=== PATIENT | female | born 1990 | race Caucasian/White ===

== ENCOUNTER → 2019-03-27 | Outpatient (CLI) | payer OTHER | LOC: HYPER 03-20 15:11 | DX: E11.621 Type 2 diabetes mellitus with foot ulcer (principal); L97.523 Non-pressure chronic ulcer of other part of left foot with necrosis of muscle; L84 Corns and callosities; M20.41 Other hammer toe(s) (acquired), right foot; F41.9 Anxiety disorder, unspecified; F32.9 Major depressive disorder, single episode, unspecified; F17.200 Nicotine dependence, unspecified, uncomplicated ==

== ENCOUNTER → 2019-04-04 | Outpatient (CLI) | payer OTHER | LOC: HYPER 06:32 | DX: E11.621 Type 2 diabetes mellitus with foot ulcer (principal); L97.522 Non-pressure chronic ulcer of other part of left foot with fat layer exposed; M20.41 Other hammer toe(s) (acquired), right foot; F17.200 Nicotine dependence, unspecified, uncomplicated; F41.9 Anxiety disorder, unspecified; F32.9 Major depressive disorder, single episode, unspecified; Z79.84 Long term (current) use of oral hypoglycemic drugs ==

== ENCOUNTER → 2019-04-11 | Outpatient (CLI) | payer OTHER | LOC: HYPER 06:55 | DX: E11.621 Type 2 diabetes mellitus with foot ulcer (principal); L97.522 Non-pressure chronic ulcer of other part of left foot with fat layer exposed; M20.41 Other hammer toe(s) (acquired), right foot; F41.9 Anxiety disorder, unspecified; F32.9 Major depressive disorder, single episode, unspecified; F17.200 Nicotine dependence, unspecified, uncomplicated; Z79.84 Long term (current) use of oral hypoglycemic drugs ==

== ENCOUNTER → 2019-04-15 | Outpatient (CLI) | payer OTHER | LOC: HYPER 06:29 | DX: E11.621 Type 2 diabetes mellitus with foot ulcer (principal); L97.522 Non-pressure chronic ulcer of other part of left foot with fat layer exposed; L84 Corns and callosities; M20.41 Other hammer toe(s) (acquired), right foot; F41.9 Anxiety disorder, unspecified; F32.9 Major depressive disorder, single episode, unspecified; F17.200 Nicotine dependence, unspecified, uncomplicated; Z79.84 Long term (current) use of oral hypoglycemic drugs ==

== ENCOUNTER → 2019-04-18 | Outpatient (CLI) | payer OTHER | LOC: HYPER 04-17 06:57 | DX: E11.621 Type 2 diabetes mellitus with foot ulcer (principal); L97.522 Non-pressure chronic ulcer of other part of left foot with fat layer exposed; L84 Corns and callosities; M20.41 Other hammer toe(s) (acquired), right foot; F17.200 Nicotine dependence, unspecified, uncomplicated; F41.9 Anxiety disorder, unspecified; F32.9 Major depressive disorder, single episode, unspecified; Z79.84 Long term (current) use of oral hypoglycemic drugs ==

== ENCOUNTER → 2019-04-24 | Outpatient (CLI) | payer OTHER | LOC: HYPER 06:43 | DX: E11.621 Type 2 diabetes mellitus with foot ulcer (principal); L97.522 Non-pressure chronic ulcer of other part of left foot with fat layer exposed; M20.41 Other hammer toe(s) (acquired), right foot; L84 Corns and callosities; F41.9 Anxiety disorder, unspecified; F32.9 Major depressive disorder, single episode, unspecified; F17.200 Nicotine dependence, unspecified, uncomplicated; Z79.84 Long term (current) use of oral hypoglycemic drugs ==

== ENCOUNTER → 2019-04-29 | Outpatient (CLI) | payer OTHER | LOC: HYPER 10:35 | DX: E11.621 Type 2 diabetes mellitus with foot ulcer (principal); L97.522 Non-pressure chronic ulcer of other part of left foot with fat layer exposed; L84 Corns and callosities; M20.41 Other hammer toe(s) (acquired), right foot; F41.9 Anxiety disorder, unspecified; F17.200 Nicotine dependence, unspecified, uncomplicated; F32.9 Major depressive disorder, single episode, unspecified; Z79.84 Long term (current) use of oral hypoglycemic drugs ==

== ENCOUNTER → 2019-05-08 | Outpatient (CLI) | payer OTHER | LOC: HYPER 07:03 | DX: E11.621 Type 2 diabetes mellitus with foot ulcer (principal); L97.522 Non-pressure chronic ulcer of other part of left foot with fat layer exposed; L84 Corns and callosities; M20.41 Other hammer toe(s) (acquired), right foot; F41.9 Anxiety disorder, unspecified; F32.9 Major depressive disorder, single episode, unspecified; F17.200 Nicotine dependence, unspecified, uncomplicated; Z79.84 Long term (current) use of oral hypoglycemic drugs ==

== ENCOUNTER → 2019-05-15 | Outpatient (CLI) | payer OTHER | LOC: HYPER 06:41 | DX: E11.621 Type 2 diabetes mellitus with foot ulcer (principal); L97.522 Non-pressure chronic ulcer of other part of left foot with fat layer exposed; L84 Corns and callosities; M20.41 Other hammer toe(s) (acquired), right foot; F17.200 Nicotine dependence, unspecified, uncomplicated; F41.9 Anxiety disorder, unspecified; F32.9 Major depressive disorder, single episode, unspecified; Z79.84 Long term (current) use of oral hypoglycemic drugs ==

== ENCOUNTER → 2019-05-22 | Outpatient (CLI) | payer OTHER ==
[~2019-05-22] MED LIST: COZAAR 25 MG TA25 M2 PO; FLEXERIL PO; GLIPIZIDE 10 MG10 MG PO; LIPITOR 20 MG T20 M1 PO; VICTOZA 3-0.6 MG/0.1 SUBQ
== END ==
LOC: HYPER 06:57
DX: E11.621 Type 2 diabetes mellitus with foot ulcer (principal); L97.522 Non-pressure chronic ulcer of other part of left foot with fat layer exposed; L84 Corns and callosities; M20.41 Other hammer toe(s) (acquired), right foot; F17.200 Nicotine dependence, unspecified, uncomplicated; F41.9 Anxiety disorder, unspecified; F32.9 Major depressive disorder, single episode, unspecified; Z79.84 Long term (current) use of oral hypoglycemic drugs

== ENCOUNTER 2019-05-29 09:53 | Day surgery (SDC) | payer OTHER ==
[~2019-05-29] VITALS: Ht 182.9 cm; Wt 102.2 kg
[2019-05-29 10:43] LABS: HEMATOCRIT 48.9 % (37.0-47.0); HEMOGLOBIN 16.6 gm/dL (12.0-15.0); MCH 28.7 pg (26.0-34.0); MCV 84.5 fL (80.0-100.0); RBC 5.79 mil/uL (4.20-5.00); RDW 12.7 % (10.5-14.5); WBC 18.7 thou/uL (4.0-11.0)
[2019-05-29 11:00] VITALS: BP 157/92
--- NOTE | 2019-05-31 19:06 | PATH ---
[facility] [address] [place] [address] PATHOLOGY RPT PROCEDURE Name: AILYN CAMACHO Room #: DEP [facility] M.R.#: [id number] ������������������ Admission: 05/29/19 ������������������ Date of : 86 Discharge: 05/29/19 Report #: [id number] Path Case #: [id number] LCA Accession Number: [id number] . 01 Material submitted: . toe - LEFT GREAT TOE. Modifiers: left . 01 Clinical history: . Osteomyelitis left hallux . 02 Diagnosis: Toe, left great toe, amputation: - Marked acute osteomyelitis along with bone destruction involving underneath acutely inflamed subcutaneous tissue. - Overlying skin and subcutaneous tissue showing ulceration as well as abscess formation. - Bone margin viable and free of acute osteomyelitis. (IUV:riley; 05/31/2019) QMS/05/31/2019 . 02 Electronically signed: . Priya Rodrigues MD, Pathologist NPI- [id number] . 01 Gross description: . The specimen is received in formalin, labeled "Ailyn Camacho, left great toe". Received is an amputated digit measuring 6.8 x 3.1 x 2.8 cm in greatest dimensions. The bone margin is smooth and concave in appearance, consistent with disarticulation. The bone and soft tissue margins are inked black. The nail is present display in a pale lloyd and slightly thickened appearance. On the plantar/medial aspect of the specimen, there is a poorly circumscribed, irregular in contour, partially ulcerated and light lloyd to cruz-brown lesion measuring 2.3 x 1.5 cm, which is 0.8 cm from the closest skin margin. A full-thickness longitudinal cross-section is submitted proximal to distal aspects in cassettes A1 through A3, following decalcification. (CAA; 05/30/2019) QAC/QAC . 02 Pathologist provided ICD-10: M86.172, L97.529 . 02 CPT . 082254, 984860 Specimen Comment: A courtesy copy of this report has been sent to Specimen Comment: [phone], . Specimen Comment: Report sent to / [place] [address] PATHOLOGY RPT PROCEDURE Name: AILYN CAMACHO Room #: DEP [facility].#: [id number] ������������������ Admission: 05/29/19 ������������������ Date of : 88 Discharge: 05/29/19 Report #: [id number] Path Case #: [id number] Performed at: 01 [facility] Art Wang [address], [place], [place] [id number] MD Phillip Salas MD Phone: [phone] Performed at: [address] [id number] MD Priya Rodrigues MD Phone: [phone]
== END 2019-05-29 12:35 | disposition home or self-care (01) ==
LOC: TBA 09:53 → OR 09:53 → TBA 10:11 → OR 11:14
PROVIDERS: Podiatrist Foot & Ankle Surgery
DX: E11.621 Type 2 diabetes mellitus with foot ulcer (principal); M86.172 Other acute osteomyelitis, left ankle and foot; L97.529 Non-pressure chronic ulcer of other part of left foot with unspecified severity; I10 Essential (primary) hypertension; E78.00 Pure hypercholesterolemia, unspecified; F32.9 Major depressive disorder, single episode, unspecified; F41.9 Anxiety disorder, unspecified; F17.210 Nicotine dependence, cigarettes, uncomplicated; Z98.890 Other specified postprocedural states; Z88.8 Allergy status to other drugs, medicaments and biological substances; Z79.899 Other long term (current) drug therapy; Z91.040 Latex allergy status
CPT/HCPCS: 50010; 50101; 50386; 50951; 56525; 56527; 56805; 57091; 57178

== ENCOUNTER 2019-06-03 15:16 | Inpatient (IN) | payer OTHER ==
[~2019-06-03] VITALS: Ht 182.9 cm; Wt 101.4 kg
--- NOTE | ~2019-06-03 | HC ---
[facility] [place] [address] CONSULTATION Name: CASSY OSPINA Room #: 449-I ADM IN M.R.#: [id number] Admission: 06/03/19 ������������������ Attend Phys: Tyler Lindsay MD Discharge: ������������������ Date of : 88 Report #: [id number] THIS REPORT FOR: //name// CC: Rl Lindsay DATE OF SERVICE: 06/04/2019 INFECTIOUS DISEASE CONSULTATION REASON FOR CONSULTATION: I was asked to evaluate concerning surgical site infection, left foot. HISTORY OF PRESENT ILLNESS: The patient is a 29-year-old diabetic with a nonhealing wound to her left first toe. On 05/29/2019, Dr. Harrington performed a left first toe amputation. There were no intraoperative complications. Postoperatively, developed increased erythema and drainage. She has had pain with this. She does have underlying peripheral neuropathy. Her blood glucose control has been poor. She was hospitalized for further wound care, diabetic management and antibiotics. ALLERGIES: LATEX, AMOXICILLIN, PROPRANOLOL. The patient did tolerate cephalexin. MEDICATIONS: The patient was on cephalexin postoperatively, now on vancomycin and Levaquin. Other medications as noted on her MAR. PAST MEDICAL HISTORY: Diabetes, tonsillectomy, , left foot wound. She has had a wound to her right great toe, which has healed. FAMILY HISTORY: Noncontributory. SOCIAL HISTORY: Smoker of cigarettes. No significant alcohol intake, no HIV risks. REVIEW OF SYSTEMS: Ten-point review was negative other than what is described above. PHYSICAL EXAMINATION: VITAL SIGNS: Afebrile and hemodynamically stable. GENERAL: Alert and cooperative and pleasant. Mildly obese. SKIN: Without rash or lesion. Remainder will be discussed on her extremity examination. No palpable adenopathy. EYES: Without scleral icterus. MOUTH: Without mucositis. NECK: Supple, with no thyromegaly or mass. [facility] [address] [place] [address] CONSULTATION Name: CASSY OSPINA [facility].#: [id number] Admission: 06/03/19 ������������������ Attend Phys: Tyler Lindsay MD Discharge: ������������������ Date of : 88 Report #: [id number] LUNGS: Clear. HEART: Regular, without murmur, gallop or rub. ABDOMEN: Soft and nontender with no hepatosplenomegaly or mass. GENITAL RECTAL: Not performed. EXTREMITIES: The left foot had postoperative change from left great toe amputation. Incision was well approximated. There were surrounding erythema and some ecchymosis. There was minimal drainage. She had a bullous lesion over the dorsum of her midfoot from pressure. Sensation was diminished in the toes to fine touch. She had high arches. Pulses in the foot were diminished in the posterior tibial with normal dorsalis pedis. Strength was normal. Other toes were with good capillary refill and were warm. NEUROLOGIC: Cranial nerves intact. PSYCHIATRIC: Mood normal. LABORATORY STUDIES: Reviewed. Creatinine 0.6. Liver function tests normal. WBC 16.5, hemoglobin 15.9, platelets 327,000. Blood cultures are pending. Wound culture pending. Intraoperative cultures revealed group B Streptococcus from 05/29/2019. IMPRESSION: 1. A 29-year-old diabetic with osteomyelitis of her left first toe, status post amputation, now postoperative day #6 with left foot surgical site infection and associated cellulitis. MRI scan shows small fluid collection consistent with hematoma. Reactive changes to the metatarsal head. 2. PENICILLIN allergy. RECOMMENDATIONS: We will continue antibiotic coverage pending culture results from her incisional drainage. I have discussed with Surgical Service. We will give this another 24 hours and reassess before considering incision and drainage of the hematoma. ��������������������������������������������� ���������������������������������������� By: ��������������������������������������������� 1952 0223 Tone Colin MD /nt
[2019-06-03 15:14] VITALS: BP 134/85
[2019-06-03 17:52] LABS: HEMATOCRIT 47.2 % (37.0-47.0); HEMOGLOBIN 15.9 gm/dL (12.0-15.0); MCH 28.6 pg (26.0-34.0); MCHC 33.6 g/dL (28.0-37.0); MCV 85.2 fL (80.0-100.0); RBC 5.54 mil/uL (4.20-5.00); RDW 13.3 % (10.5-14.5); WBC 16.5 thou/uL (4.0-11.0)
[2019-06-03 17:57] LABS: CALCIUM 9.7 mg/dL (8.5-10.1); CREATININE 0.6 mg/dL (0.6-1.0); POTASSIUM 3.8 mmol/L (3.5-5.1)
[2019-06-03 18:03] LABS: ALBUMIN 3.4 g/dL (3.4-5.0); TOTAL BILIRUBIN 0.6 mg/dL (<0.1-1.0); TOTAL PROTEIN 7.1 g/dL (6.4-8.2)
[2019-06-03 18:10] LABS: CHOLESTEROL 150 mg/dL (<200); HDL CHOLESTEROL 32 mg/dL (>40); LDL CHOLESTEROL 91 mg/dL (<100); TC:HDL 4.7 Ratio (Not establshd); TRIGLYCERIDE 135 mg/dL (<150); VLDL 27 mg/dL (<40)
[2019-06-03 18:11] LABS: SERUM ASSESSMENT Clear
[2019-06-03 19:54] VITALS: BP 131/86
[2019-06-03 22:05] VITALS: BP 143/84
[2019-06-04 04:05] VITALS: BP 123/69
[2019-06-04 07:58] VITALS: BP 134/79
[2019-06-04 16:33] VITALS: BP 140/60
[2019-06-04 19:53] VITALS: BP 120/67
[2019-06-05] VITALS (9 sets, daily range): BP systolic 103–154; BP diastolic 59–91
[2019-06-05 04:06] LABS: GLYCOHEMOGLOBIN (HGB A1C) 8.8 % (4.8-5.6)
[2019-06-05 05:43] LABS: ABSOLUTE NEUTROPHILS 5.1 thou/uL (1.4-8.2); BASOPHILS 0.7 % (0.0-2.0); EOSINOPHILS 5.3 % (0.0-3.0); HEMATOCRIT 42.9 % (37.0-47.0); HEMOGLOBIN 14.4 gm/dL (12.0-15.0); LYMPHOCYTES 36.4 % (24.0-44.0); MCH 28.8 pg (26.0-34.0); MCHC 33.5 g/dL (28.0-37.0); MCV 85.8 fL (80.0-100.0); MONOCYTES 9.6 % (1.0-8.0); PLATELET COUNT 298 thou/uL (150-400); RDW 12.9 % (10.5-14.5); WBC 10.6 thou/uL (4.0-11.0)
--- NOTE | 2019-06-05 07:45 | HC ---
[facility] [place] [address] CONSULTATION Name: CASSY OSPINA Room #: 449-I ADM IN M.R.#: [id number] Admission: 06/03/19 ������������������ Attend Phys: Tyler Lindsay MD Discharge: ������������������ Date of : 88 Report #: [id number] THIS REPORT FOR: //name// CC: Rl Lindsay DATE OF SERVICE: 06/04/2019 HISTORY OF PRESENT ILLNESS: The patient is a 29-year-old uncontrolled diabetic with history of neuropathy and chronic ulceration to her left hallux. She has had this wound for over a year. She was under my care and then was referred most recently by Dr. Trejo and was getting skin grafts and total contact casting to offload. The patient had developed an infection that then probed directly to bone and on x-ray has had bony infectious changes. The patient underwent a left hallux amputation on 05/29/2019. The patient was then seen yesterday in my outpatient office for postoperative appointment with noted cellulitis at incision aspect. The patient has issue with elevated blood sugars at home and has not been taking adequate amount of insulin. The patient prior to admission was on Keflex antibiotic. The patient denies fever, chills, nausea, vomiting. The patient smokes about a half pack of cigarettes per day. The patient has been off work wearing a forefoot offloading surgical shoe at all times since prior to surgery. PHYSICAL EXAMINATION: EXTREMITIES: Right foot without any breaks in the skin. Left foot with incision to first metatarsal head well approximated at lateral aspect, but it medial aspect, there is some slight gapping with some localized serosanguineous drainage with surrounding edema and erythema, but not ascending. There are no areas of obvious abscess or fluctuance. There is some maceration at the medial aspect of the incision. There is no pus. No malodor. There is complete neuropathy to bilateral forefeet and decreased throughout the rest of the feet, bilateral. There is some mild tenderness at the area of the incision on the left. Due to palpable pulses bilateral, temperature warm with some slight increase at the area of the incision left. IMPRESSION: A 29-year-old uncontrolled diabetic with neuropathy and status post left hallux amputation now with incision dehiscense and cellulitis. The patient was admitted from my outpatient clinic yesterday 06/03/2019 for further workup with MRI, Infectious Disease consult, IV antibiotics, better glucose control, and tobacco cessation counseling. Also recommend SW consult and endocrinology consult. The patient with leukocytosis, currently. Afebrile. We will await MRI results for further recommendations. [address] [address] CONSULTATION Name: CASSY OSPINA Room #: 449-I ADM IN M.R.#: [id number] Admission: 06/03/19 ������������������ Attend Phys: Tyler Lindsay MD Discharge: ������������������ Date of : 88 Report #: [id number] Previous wound culture with group B strep. Her postop x-rays from left hallux amputation without any concerns for further bone infection or abscess. Recommend offloading with resting and elevation of the left foot with only bathroom privileges with forefoot surgical shoe to offload. Will closely follow. ��������������������������������������������� <ELECTRONICALLY SIGNED> ���������������������������������������� By: Gi Harrington DPM ��������������������������������������������� 06/05/19 0745 0805 0215 Gi Harrington DPM /nt
--- NOTE | 2019-06-05 16:17 | HC ---
[facility] [place] [address] CONSULTATION Name: CASSY OSPINA Room #: 449-I ADM IN M.R.#: [id number] Admission: 06/03/19 ������������������ Attend Phys: Tyler Lindsay MD Discharge: ������������������ Date of : 88 Report #: [id number] THIS REPORT FOR: //name// CC: Rl Lindsay DATE OF SERVICE: 06/04/2019 CHIEF COMPLAINT: Left foot infection. HISTORY OF PRESENT ILLNESS: This is a 29-year-old female patient with a history of diabetes mellitus with a chronic ulceration to her left great toe. She underwent a series of total contact cast procedures and some skin substitute procedures, developed progressive infection and osteomyelitis and had a great toe amputation. The amputation site was closed primarily but has become infected and she is admitted to the hospital for further evaluation and treatment. She has been started on intravenous antibiotic therapy. I have been asked to see with regard to ongoing wound care issues. ALLERGIES: To LATEX, AMOXICILLIN and PROPRANOLOL. PAST MEDICAL HISTORY: Positive for osteomyelitis of the left foot, type 2 diabetes mellitus, previous . SOCIAL HISTORY: The patient is a current daily smoker. She drinks occasionally, maybe 1 drink every 6-9 months. FAMILY HISTORY: Noncontributory. CURRENT MEDICATIONS: Include Flexeril, Victoza, Glucotrol, Cozaar and Lipitor. REVIEW OF SYSTEMS: CONSTITUTIONAL: The patient denies fever, chills or weight loss. NEUROLOGICAL: The patient denies focal weakness, numbness or tingling. EYES: The patient denies visual changes, redness, or drainage. ENT: The patient denies earache, nasal drainage or sore throat. CARDIOVASCULAR: The patient denies chest pain, palpitations or diaphoresis. PULMONARY: The patient denies cough or shortness of breath. GASTROINTESTINAL: The patient denies nausea, vomiting, diarrhea or abdominal pain. ORTHOPEDIC: The patient does note some pain, swelling, redness involving her left foot at the incision site area. Other systems in a 14-point review of systems are negative. PHYSICAL EXAMINATION: VITAL SIGNS: At this time include temperature 36.6, pulse 60, respiratory rate [facility] [address] [place] [address] CONSULTATION Name: CASSY OSPINA Room #: 449-I [facility] IN [facility].#: [id number] Admission: 06/03/19 ������������������ Attend Phys: Tyler Lindsay MD Discharge: ������������������ Date of : 88 Report #: [id number], blood pressure 140/60. GENERAL: This is a well-developed, well-nourished female patient who appears to be in minimal distress. HEENT: Head normocephalic. NECK: Supple. LUNGS: Clear. ABDOMEN: Soft, bowel sounds present. EXTREMITIES: Lower extremities demonstrate palpable distal pulses. She has an incision line from following a left great toe amputation. It is moderately erythematous, tender and warm with a slight amount of drainage, but no odor. NEUROLOGIC: The patient is alert and oriented and appropriate. LABORATORY STUDIES: So far include white blood cell count 16.5 with a hemoglobin of 15.9. Sodium 134, potassium 3.8, chloride 96, CO2 of 29, BUN 9, creatinine 0.6, glucose 250. Albumin is 3.4. CLINICAL IMPRESSION: 1. Surgical wound infection following amputation of the left great toe. 2. Diabetes mellitus with peripheral neuropathy. 3. History of a nonhealing ulcer, left great toe, with underlying osteomyelitis. 4. Diabetes mellitus type 2 with hyperglycemia. RECOMMENDATIONS: At this point in time, the patient has been started on broad-spectrum antibiotic therapy. She will be seen by Infectious Disease. We will check an MRI to look for underlying fluid collection or abscess. Xeroform gauze to the incision line for the present time. Additional decision making be forthcoming upon additional laboratory studies and MRI results. I appreciate being asked to see her in consultation. ��������������������������������������������� <ELECTRONICALLY SIGNED> ���������������������������������������� By: Cortez eDl Rio MD ��������������������������������������������� 06/05/19 1617 1826 0256 Cortez Del Rio MD /nt
[2019-06-06 03:44] VITALS: BP 122/67
--- NOTE | 2019-06-06 07:18 | O ---
[facility] [place] [address] OPERATIVE REPORT Name: CASSY OSPINA Room #: 449-I ADM IN M.R.#: [id number] Admission: 06/03/19 ������������������ Attend Phys: Tylre Lindsay MD Discharge: ������������������ Date of : 88 Report #: [id number] THIS REPORT FOR: //name// CC: Rl Lindsay DATE OF SERVICE: 06/05/2019 SURGEON: GI BAKER DPM PREOPERATIVE DIAGNOSIS: Left foot dehiscence of incision with cellulitis and abscess. POSTOPERATIVE DIAGNOSIS: Left foot dehiscence of incision with cellulitis and abscess. PROCEDURE: Incision and drainage with debridement of left foot abscess/incision dehiscense. ANESTHESIA: MAC with local block, left foot. PATHOLOGY: culture wound left foot. COMPLICATIONS: None. HEMOSTASIS: Left ankle tourniquet set at 250 mmHg. ESTIMATED BLOOD LOSS: 10 mL. DESCRIPTION OF OPERATION: The patient was brought to the operating room with light sedation and placed on the bed in a supine position under monitored anesthesia care. Then a 1:1 mixture of 0.5% Marcaine plain and 1% lidocaine plain was infiltrated into the left foot. A pneumatic ankle tourniquet was placed on the left ankle. The left foot was prepped and draped in the normal sterile fashion and then the pneumatic ankle tourniquet was inflated to 250 mmHg. Attention was directed to the left first metatarsal head aspect where a previous incision was present with dehiscence extending from the central to medial aspect with a wound present with nonviable tissue. An incision was made over the previous site in a semielliptical fashion removing all nonviable tissue to the skin. This tissue was sent for culture. The incision was deepened using sharp and blunt dissection. Care was taken to identify all neurovascular bundles and cauterize all the bleeders. The tissue here that was just distal to the first metatarsal head, all appeared nonviable and necrotic. In addition, there was a small pocket of fluid present heremeasuring about 1 cm. Dissection was carried down to the first metatarsal head, [facility] [address] [place] [address] OPERATIVE REPORT Name: CASSY OSPINA Room #: 449-I ADM IN .R.#: [id number] Admission: 06/03/19 ������������������ Attend Phys: Tyler Lindsay MD Discharge: ������������������ Date of : 88 Report #: [id number] which the bone appeared healthy and viable. The remaining tissues left appeared healthy. The use of Misonix debrider was used to remove all remaining nonviable tissue. The wound was irrigated with copious 1L saline. There was no remaining drainage or any pus proximal with deep compression or to the wound site. Skin closure was then obtained using a combination of 2-0 and 3-0 nylon in a simple interrupted fashion with retention sutures at the central aspect. . In addition, a TLC drain was placed at the central aspect of the incision with more loose retention sutures in place to allow drainage. The surgical site was dressed with Betadine-soaked Adaptic, 4 x 4, Claudio and an Taran bandage. The tourniquet was released and adequate capillary fill time was noted to all present digits on the left foot and the stump at first metatarsal head. The patient left the operating room with vital signs stable in satisfactory condition for further monitoring. The drain will be removed prior to discharge. She was given written and verbal instruction and was transferred to the inpatient floor. ��������������������������������������������� <ELECTRONICALLY SIGNED> ���������������������������������������� By: Gi Baker DPM ��������������������������������������������� 06/06/19 0718 2211 2300 Gi Baker DPM /nt
[2019-06-06 08:05] VITALS: BP 117/68
--- NOTE | 2019-06-06 08:55 | HC ---
[facility] [place] [address] CONSULTATION Name: CASSY OSPINA Room #: 449-I ADM IN M.R.#: [id number] Admission: 06/03/19 ������������������ Attend Phys: Tyler Lindsay MD Discharge: ������������������ Date of : 86 Report #: [id number] THIS REPORT FOR: //name// CC: Rl Lindsay DATE OF SERVICE: 06/05/2019 ENDOCRINE CONSULTATION NOTE CONSULTING PHYSICIAN: Dr. Lindsay. REASON FOR CONSULTATION: Uncontrolled type 2 diabetes mellitus. HISTORY OF PRESENT ILLNESS: This is a 29-year-old female patient whose medical background is significant for a longstanding diagnosis of type 2 diabetes mellitus at the age of 11 years. She notes that this label of type 2 versus type 1 was made after a thorough workup was conducted at [facility]. The patient has been through multiple therapeutic changes, but her most recent antidiabetic regimen consist of Victoza 1.8 mg daily in addition to glipizide 20 mg daily. The patient says that she could not tolerate metformin in the past due to severe GI side effects. Moreover, the patient has been through multiple changes involving the addition of long-acting insulin and notes that she has eventually came off these primarily due to access and cost issues. She does, however, acknowledge that she uses her aunt's Lantus intermittently, but inconsistently. The patient's level of blood glucose control seems to be typically on the high end of things with values running between 200-300 mg/dL. She does not have frequent or severe issue with hypoglycemia. It appears that the patient has not had a systematic eye care or followup over the years, but believes that aspect has done well for her overall. She is not aware of issues pertaining to diabetic nephropathy or neuropathy and she is not aware of any elements of coronary artery disease. However, the patient has been dealing with a persistent worsening left foot infection, which culminated in a great toe amputation over a week ago. Since then, her wound has been slow to heal and she has suffered issues pertaining to edema, tenderness and redness involving the site of her surgery after which she was determined to have cellulitis of the foot and admitted for further care and monitoring. REVIEW OF SYSTEMS: CONSTITUTIONAL: Intermittent issues with fatigue, tiredness, but no weight [facility] [address] [place] [address] CONSULTATION Name: CASSY OSPINA [facility] [id number] Admission: 06/03/19 ������������������ Attend Phys: Tyler Lindsay MD Discharge: ������������������ Date of : 86 Report #: [id number] changes, fever or chills. PULMONARY: Negative for chronic shortness of breath, cough or hemoptysis. CARDIAC: Negative for chest pain, heart palpitations, syncope or presyncope. GASTROINTESTINAL: Negative for abdominal pain, nausea, vomiting. Has issues with occasional abdominal distention. HEENT: Negative for sinus pain, ear drainage. SKIN: Noted for the swelling, tenderness and redness over the surgical site of her left great toe amputation as noted above. NEUROLOGY: Negative for loss of consciousness, headaches, or seizure activity. PSYCHOLOGY: Negative for hallucinations, delusions. Otherwise, review of systems is noncontributory other than those mentioned in HPI. PAST MEDICAL HISTORY: 1. Type 2 diabetes mellitus as noted above. 2. Hypertension. 3. Hyperlipidemia. 4. Peripheral vascular disease. 5. Left foot cellulitis, status post left great toe amputation over a week ago. OUTPATIENT MEDICATIONS: Include Victoza 1.8 mg daily, glipizide 20 mg daily, losartan 25 mg daily, atorvastatin 20 mg at bedtime, Flexeril 10 mg t.i.d. p.r.n. ALLERGIES: LATEX, AMOXICILLIN, PROPRANOLOL. As noted above, the patient had a severe intolerance towards metformin. FAMILY HISTORY: Noted for heart disease. SOCIAL HISTORY: The patient is single, has 1 child. Works in [employer], slightly physical job. Smokes about a pack a day. Drinks alcohol only rarely. PHYSICAL EXAMINATION: CONSTITUTIONAL: Pleasant young female patient. The patient appears comfortable, not in pain or distress. VITAL SIGNS: Blood pressure is 132/83 mmHg, heart rate is 103 beats per minute, respirations 16 per minute, temperature is 36.7 degrees. HEENT: Anicteric sclerae. Intact extraocular motions. NECK: Supple, without JVD, carotid bruits or lymphadenopathy. I do not appreciate thyromegaly. CHEST: Exam is noted for good air entry bilaterally without crackles. She has scattered rales. HEART: Regular rate and rhythm without murmurs or gallops. ABDOMEN: Soft and lax without tenderness or organomegaly. She has active bowel sounds. EXTREMITIES: Lower extremity exam is noted for a dark red discoloration over a [facility] [address] [place] [address] CONSULTATION Name: CASSY OSPINA Room #: 449-I ADM IN [facility]#: [id number] Admission: 06/03/19 ������������������ Attend Phys: Tyler Lindsay MD Discharge: ������������������ Date of : 86 Report #: [id number] recent wound in the place of her left great toe. Pedal pulses are faint. Sensation to light touch is moderately diminished over both feet. NEUROLOGIC: Awake, alert and oriented to time, place and person. The remainder of her examination is nonfocal. PSYCHIATRIC: Appropriate, pleasant. Normal mood and affect. LABORATORY DATA: Blood glucose is 226. White blood count 10.6, hemoglobin 14.4, hematocrit 42.9. ESR 27. C-reactive protein 17.5. Vancomycin 10. Hemoglobin A1c 8.8%. Blood glucose values since arrival have run between 191-228 mg/dL, she had a high of 468 mg/dL and the low of 122 mg/dL. ASSESSMENT AND PLAN: 1. Type 2 diabetes mellitus. As noted above, the patient has an uncontrolled diabetic baseline as per her report, her blood glucose values as well as per her recorded hemoglobin A1c of 8.8%. The patient and I discussed the need for better glycemic control at length and I explained that it is intimately related to her ongoing issues with foot cellulitis, which she understands well. In the immediate setting, I will move towards adding coverage with Lantus insulin in addition to her ongoing coverage with the moderate Humalog supplemental scale and glipizide 10 mg daily. I will start the patient on a dose of 12 units q.p.m. as of tonight and monitor her blood glucose values a.c. and at bedtime to adjust her regimen as needed. As importantly, the patient would certainly benefit from putting together a plan that is geared towards a consistently adequate glycemic control once she is discharged from the hospital. As noted above, the patient had frequent access issues to the long-acting insulin and could not tolerate metformin in the past. I had her investigate her coverage benefits for long-acting insulin and it seems that Tresiba is an option. That said, I plan to discharge her on a combination of Tresiba insulin, Victoza as well as glipizide and certainly have her monitor her blood glucose at home and follow up with me in 2-3 weeks from now. 2. Hyperlipidemia. The patient is currently on atorvastatin therapy and tolerates it well, she is to continue with that line of therapy. I will check a lipid panel to investigate adequacy of this regimen. 3. Hypertension. The patient is currently on a regimen of losartan monotherapy for hypertension and seems to do well with that. She is to continue with the same. I certainly appreciate this consultation by Dr. Lindsay. ��������������������������������������������� <ELECTRONICALLY SIGNED> ���������������������������������������� By: Jhon Swenson MD ��������������������������������������������� 06/06/19 [id number] Jhon Swenson MD /nt
[2019-06-06] MEDS ORDERED: TRESIBA FL200 UNIT/1 SUBQ (09:51)
[2019-06-06] MEDS ORDERED: CEFTRIAXONE2 G1 IVPB (12:28)
[2019-06-06 14:30] VITALS: BP 137/79
[2019-06-06 16:12] VITALS: BP 137/79
[2019-06-06 17:01] VITALS: BP 137/79
[2019-06-06 17:02] VITALS: BP 137/79
== END 2019-06-06 18:15 | disposition home health service (06) | DRG 857 ==
LOC: TBA 15:16 → 4W 15:56
PROVIDERS: Hospitalist; Podiatrist Foot & Ankle Surgery; ADMIT Internal Medicine
PROC: 0JDR0ZZ Extraction of Left Foot Subcutaneous Tissue and Fascia, Open Approach (ICD-10-PCS; principal; 2019-06-05)
PROC: 0J9R0ZZ Drainage of Left Foot Subcutaneous Tissue and Fascia, Open Approach (ICD-10-PCS; principal; 2019-06-05)
PROC: 02HV33Z Insertion of Infusion Device into Superior Vena Cava, Percutaneous Approach (ICD-10-PCS; 2019-06-06)
DX: T81.41XA Infection following a procedure, superficial incisional surgical site, initial encounter (principal); L03.116 Cellulitis of left lower limb; M86.8X8 Other osteomyelitis, other site; T81.30XA Disruption of wound, unspecified, initial encounter; I10 Essential (primary) hypertension; E11.22 Type 2 diabetes mellitus with diabetic chronic kidney disease; E11.69 Type 2 diabetes mellitus with other specified complication; E11.42 Type 2 diabetes mellitus with diabetic polyneuropathy; E78.5 Hyperlipidemia, unspecified; E11.51 Type 2 diabetes mellitus with diabetic peripheral angiopathy without gangrene; F17.210 Nicotine dependence, cigarettes, uncomplicated; Y83.8 Other surgical procedures as the cause of abnormal reaction of the patient, or of later complication, without mention of misadventure at the time of the procedure; Z89.9 Acquired absence of limb, unspecified; Z88.8 Allergy status to other drugs, medicaments and biological substances; Z88.1 Allergy status to other antibiotic agents; Z91.040 Latex allergy status; Y92.89 Other specified places as the place of occurrence of the external cause
CPT/HCPCS: 10047; 27000; 50010; 50101; 50386; 50825; 56525; 56527; 57091; 57119; 57120; 57178; 70005

== ENCOUNTER → 2019-06-17 | Outpatient (CLI) | payer OTHER ==
[~2019-06-17] MED LIST changes: +CEFTRIAXONE2 G1 IVPB; +TRESIBA FL200 UNIT/1 SUBQ
== END ==
LOC: HYPER 07:00
DX: T87.89 Other complications of amputation stump (principal); E11.621 Type 2 diabetes mellitus with foot ulcer; L97.522 Non-pressure chronic ulcer of other part of left foot with fat layer exposed; L89.899 Pressure ulcer of other site, unspecified stage; M20.41 Other hammer toe(s) (acquired), right foot; L84 Corns and callosities; F41.9 Anxiety disorder, unspecified; F32.9 Major depressive disorder, single episode, unspecified; F17.200 Nicotine dependence, unspecified, uncomplicated; Z79.84 Long term (current) use of oral hypoglycemic drugs; Y83.5 Amputation of limb(s) as the cause of abnormal reaction of the patient, or of later complication, without mention of misadventure at the time of the procedure

== ENCOUNTER → 2019-07-01 | Outpatient (CLI) | payer OTHER | LOC: HYPER 05-30 10:08 | DX: T87.89 Other complications of amputation stump (principal); E11.621 Type 2 diabetes mellitus with foot ulcer; L97.522 Non-pressure chronic ulcer of other part of left foot with fat layer exposed; L89.890 Pressure ulcer of other site, unstageable; L84 Corns and callosities; F41.9 Anxiety disorder, unspecified; F32.9 Major depressive disorder, single episode, unspecified; F17.200 Nicotine dependence, unspecified, uncomplicated; Z68.31 Body mass index [BMI] 31.0-31.9, adult; Z79.84 Long term (current) use of oral hypoglycemic drugs; Z89.412 Acquired absence of left great toe; Y83.5 Amputation of limb(s) as the cause of abnormal reaction of the patient, or of later complication, without mention of misadventure at the time of the procedure ==

== ENCOUNTER → 2019-07-15 | Outpatient (CLI) | payer OTHER | LOC: HYPER 07-10 17:08 | DX: T87.89 Other complications of amputation stump (principal); E11.621 Type 2 diabetes mellitus with foot ulcer; L97.522 Non-pressure chronic ulcer of other part of left foot with fat layer exposed; L89.893 Pressure ulcer of other site, stage 3; L84 Corns and callosities; M20.41 Other hammer toe(s) (acquired), right foot; F41.9 Anxiety disorder, unspecified; F32.9 Major depressive disorder, single episode, unspecified; F17.200 Nicotine dependence, unspecified, uncomplicated; Z79.84 Long term (current) use of oral hypoglycemic drugs; Y83.5 Amputation of limb(s) as the cause of abnormal reaction of the patient, or of later complication, without mention of misadventure at the time of the procedure ==

== ENCOUNTER → 2019-07-25 | Outpatient (CLI) | payer OTHER | LOC: HYPER 05:06 | DX: T87.89 Other complications of amputation stump (principal); E11.621 Type 2 diabetes mellitus with foot ulcer; L89.893 Pressure ulcer of other site, stage 3; L97.522 Non-pressure chronic ulcer of other part of left foot with fat layer exposed; L84 Corns and callosities; M20.41 Other hammer toe(s) (acquired), right foot; F41.9 Anxiety disorder, unspecified; F32.9 Major depressive disorder, single episode, unspecified; F17.200 Nicotine dependence, unspecified, uncomplicated; Z79.84 Long term (current) use of oral hypoglycemic drugs; Y83.5 Amputation of limb(s) as the cause of abnormal reaction of the patient, or of later complication, without mention of misadventure at the time of the procedure ==

== ENCOUNTER → 2019-07-31 | Outpatient (CLI) | payer OTHER | LOC: HYPER 08:16 | DX: T87.89 Other complications of amputation stump (principal); E11.621 Type 2 diabetes mellitus with foot ulcer; L97.522 Non-pressure chronic ulcer of other part of left foot with fat layer exposed; L89.893 Pressure ulcer of other site, stage 3; L84 Corns and callosities; M20.41 Other hammer toe(s) (acquired), right foot; F41.9 Anxiety disorder, unspecified; F32.9 Major depressive disorder, single episode, unspecified; F17.200 Nicotine dependence, unspecified, uncomplicated; Z79.84 Long term (current) use of oral hypoglycemic drugs; Y83.5 Amputation of limb(s) as the cause of abnormal reaction of the patient, or of later complication, without mention of misadventure at the time of the procedure ==

== ENCOUNTER → 2019-08-07 | Outpatient (CLI) | payer OTHER | LOC: HYPER 09:45 | DX: T87.89 Other complications of amputation stump (principal); E11.621 Type 2 diabetes mellitus with foot ulcer; L97.522 Non-pressure chronic ulcer of other part of left foot with fat layer exposed; L89.893 Pressure ulcer of other site, stage 3; L84 Corns and callosities; M20.41 Other hammer toe(s) (acquired), right foot; F41.9 Anxiety disorder, unspecified; F32.9 Major depressive disorder, single episode, unspecified; F17.200 Nicotine dependence, unspecified, uncomplicated; Z79.84 Long term (current) use of oral hypoglycemic drugs; Y83.5 Amputation of limb(s) as the cause of abnormal reaction of the patient, or of later complication, without mention of misadventure at the time of the procedure ==

== ENCOUNTER → 2019-08-15 | Outpatient (CLI) | payer OTHER | LOC: HYPER 07:50 | DX: T81.89XD Other complications of procedures, not elsewhere classified, subsequent encounter (principal); E11.621 Type 2 diabetes mellitus with foot ulcer; L97.522 Non-pressure chronic ulcer of other part of left foot with fat layer exposed; L89.893 Pressure ulcer of other site, stage 3; M20.41 Other hammer toe(s) (acquired), right foot; L84 Corns and callosities; F41.9 Anxiety disorder, unspecified; F32.9 Major depressive disorder, single episode, unspecified; F17.200 Nicotine dependence, unspecified, uncomplicated; Z79.84 Long term (current) use of oral hypoglycemic drugs; Y83.8 Other surgical procedures as the cause of abnormal reaction of the patient, or of later complication, without mention of misadventure at the time of the procedure ==

== ENCOUNTER → 2019-08-29 | Outpatient (CLI) | payer OTHER | LOC: HYPER 11:07 | DX: T87.89 Other complications of amputation stump (principal); E11.621 Type 2 diabetes mellitus with foot ulcer; L97.522 Non-pressure chronic ulcer of other part of left foot with fat layer exposed; L89.893 Pressure ulcer of other site, stage 3; L84 Corns and callosities; M20.41 Other hammer toe(s) (acquired), right foot; F41.9 Anxiety disorder, unspecified; F32.9 Major depressive disorder, single episode, unspecified; F17.200 Nicotine dependence, unspecified, uncomplicated; Z79.84 Long term (current) use of oral hypoglycemic drugs; Y83.5 Amputation of limb(s) as the cause of abnormal reaction of the patient, or of later complication, without mention of misadventure at the time of the procedure ==

== ENCOUNTER → 2019-09-20 | Outpatient (CLI) | payer OTHER | LOC: HYPER 09:00 | DX: T87.89 Other complications of amputation stump (principal); E11.621 Type 2 diabetes mellitus with foot ulcer; L89.893 Pressure ulcer of other site, stage 3; L97.526 Non-pressure chronic ulcer of other part of left foot with bone involvement without evidence of necrosis; M20.41 Other hammer toe(s) (acquired), right foot; F41.9 Anxiety disorder, unspecified; F32.9 Major depressive disorder, single episode, unspecified; F17.200 Nicotine dependence, unspecified, uncomplicated; Z79.84 Long term (current) use of oral hypoglycemic drugs; Y83.5 Amputation of limb(s) as the cause of abnormal reaction of the patient, or of later complication, without mention of misadventure at the time of the procedure ==

== ENCOUNTER → 2019-10-10 | Outpatient (CLI) | payer OTHER | LOC: HYPER 14:31 | DX: E11.621 Type 2 diabetes mellitus with foot ulcer (principal); L89.893 Pressure ulcer of other site, stage 3; L97.522 Non-pressure chronic ulcer of other part of left foot with fat layer exposed; M20.41 Other hammer toe(s) (acquired), right foot; F17.200 Nicotine dependence, unspecified, uncomplicated; F41.9 Anxiety disorder, unspecified; F32.9 Major depressive disorder, single episode, unspecified; Z79.84 Long term (current) use of oral hypoglycemic drugs ==

== ENCOUNTER → 2019-10-24 | Outpatient (CLI) | payer OTHER | LOC: HYPER 10:41 | DX: T81.89XD Other complications of procedures, not elsewhere classified, subsequent encounter (principal); E11.621 Type 2 diabetes mellitus with foot ulcer; L89.893 Pressure ulcer of other site, stage 3; L97.522 Non-pressure chronic ulcer of other part of left foot with fat layer exposed; M20.41 Other hammer toe(s) (acquired), right foot; F41.9 Anxiety disorder, unspecified; F32.9 Major depressive disorder, single episode, unspecified; F17.200 Nicotine dependence, unspecified, uncomplicated; Z79.84 Long term (current) use of oral hypoglycemic drugs; Y83.8 Other surgical procedures as the cause of abnormal reaction of the patient, or of later complication, without mention of misadventure at the time of the procedure ==

== ENCOUNTER → 2019-11-07 | Outpatient (CLI) | payer OTHER | LOC: HYPER 14:49 | DX: T81.89XD Other complications of procedures, not elsewhere classified, subsequent encounter (principal); E11.621 Type 2 diabetes mellitus with foot ulcer; L89.893 Pressure ulcer of other site, stage 3; L97.522 Non-pressure chronic ulcer of other part of left foot with fat layer exposed; F17.200 Nicotine dependence, unspecified, uncomplicated; F41.9 Anxiety disorder, unspecified; F32.9 Major depressive disorder, single episode, unspecified; Z79.84 Long term (current) use of oral hypoglycemic drugs; Z89.412 Acquired absence of left great toe; Y83.8 Other surgical procedures as the cause of abnormal reaction of the patient, or of later complication, without mention of misadventure at the time of the procedure ==

== ENCOUNTER → 2019-11-21 | Outpatient (CLI) | payer OTHER | LOC: HYPER 14:41 | DX: T81.89XD Other complications of procedures, not elsewhere classified, subsequent encounter (principal); E11.621 Type 2 diabetes mellitus with foot ulcer; L89.893 Pressure ulcer of other site, stage 3; L97.522 Non-pressure chronic ulcer of other part of left foot with fat layer exposed; L97.511 Non-pressure chronic ulcer of other part of right foot limited to breakdown of skin; M20.41 Other hammer toe(s) (acquired), right foot; F17.200 Nicotine dependence, unspecified, uncomplicated; F41.9 Anxiety disorder, unspecified; F32.9 Major depressive disorder, single episode, unspecified; Z79.84 Long term (current) use of oral hypoglycemic drugs; Y83.8 Other surgical procedures as the cause of abnormal reaction of the patient, or of later complication, without mention of misadventure at the time of the procedure ==

== ENCOUNTER → 2019-12-05 | Outpatient (CLI) | payer OTHER | LOC: HYPER 15:25 | DX: T81.89XD Other complications of procedures, not elsewhere classified, subsequent encounter (principal); E11.621 Type 2 diabetes mellitus with foot ulcer; L89.893 Pressure ulcer of other site, stage 3; L97.522 Non-pressure chronic ulcer of other part of left foot with fat layer exposed; L97.511 Non-pressure chronic ulcer of other part of right foot limited to breakdown of skin; M20.41 Other hammer toe(s) (acquired), right foot; L84 Corns and callosities; F41.9 Anxiety disorder, unspecified; F32.9 Major depressive disorder, single episode, unspecified; F17.200 Nicotine dependence, unspecified, uncomplicated; Z79.84 Long term (current) use of oral hypoglycemic drugs; Y83.8 Other surgical procedures as the cause of abnormal reaction of the patient, or of later complication, without mention of misadventure at the time of the procedure ==

== ENCOUNTER → 2019-12-19 | Outpatient (CLI) | payer OTHER | LOC: HYPER 13:38 | DX: T81.89XD Other complications of procedures, not elsewhere classified, subsequent encounter (principal); E11.621 Type 2 diabetes mellitus with foot ulcer; L89.893 Pressure ulcer of other site, stage 3; L97.522 Non-pressure chronic ulcer of other part of left foot with fat layer exposed; L97.511 Non-pressure chronic ulcer of other part of right foot limited to breakdown of skin; M20.41 Other hammer toe(s) (acquired), right foot; F32.9 Major depressive disorder, single episode, unspecified; F41.9 Anxiety disorder, unspecified; F17.290 Nicotine dependence, other tobacco product, uncomplicated; Z79.84 Long term (current) use of oral hypoglycemic drugs; Y83.8 Other surgical procedures as the cause of abnormal reaction of the patient, or of later complication, without mention of misadventure at the time of the procedure ==

== ENCOUNTER → 2020-01-02 | Outpatient (CLI) | payer OTHER | LOC: HYPER 15:00 | DX: T81.89XD Other complications of procedures, not elsewhere classified, subsequent encounter (principal); E11.621 Type 2 diabetes mellitus with foot ulcer; L89.893 Pressure ulcer of other site, stage 3; L97.522 Non-pressure chronic ulcer of other part of left foot with fat layer exposed; L84 Corns and callosities; M20.41 Other hammer toe(s) (acquired), right foot; F41.9 Anxiety disorder, unspecified; F17.200 Nicotine dependence, unspecified, uncomplicated; F32.9 Major depressive disorder, single episode, unspecified; Z79.84 Long term (current) use of oral hypoglycemic drugs; Y83.8 Other surgical procedures as the cause of abnormal reaction of the patient, or of later complication, without mention of misadventure at the time of the procedure ==

== ENCOUNTER → 2020-01-23 | Outpatient (CLI) | payer OTHER | LOC: HYPER 15:02 | DX: T81.89XD Other complications of procedures, not elsewhere classified, subsequent encounter (principal); E11.621 Type 2 diabetes mellitus with foot ulcer; L89.893 Pressure ulcer of other site, stage 3; L97.522 Non-pressure chronic ulcer of other part of left foot with fat layer exposed; L84 Corns and callosities; L97.511 Non-pressure chronic ulcer of other part of right foot limited to breakdown of skin; M20.41 Other hammer toe(s) (acquired), right foot; F41.9 Anxiety disorder, unspecified; F32.9 Major depressive disorder, single episode, unspecified; F17.200 Nicotine dependence, unspecified, uncomplicated; Z79.84 Long term (current) use of oral hypoglycemic drugs; Y83.8 Other surgical procedures as the cause of abnormal reaction of the patient, or of later complication, without mention of misadventure at the time of the procedure ==

== ENCOUNTER → 2020-02-13 | Outpatient (CLI) | payer OTHER | LOC: HYPER 11:57 | DX: T81.89XD Other complications of procedures, not elsewhere classified, subsequent encounter (principal); E11.621 Type 2 diabetes mellitus with foot ulcer; L89.893 Pressure ulcer of other site, stage 3; L97.522 Non-pressure chronic ulcer of other part of left foot with fat layer exposed; M20.41 Other hammer toe(s) (acquired), right foot; F17.200 Nicotine dependence, unspecified, uncomplicated; F41.9 Anxiety disorder, unspecified; F32.9 Major depressive disorder, single episode, unspecified; Z79.84 Long term (current) use of oral hypoglycemic drugs; Y83.8 Other surgical procedures as the cause of abnormal reaction of the patient, or of later complication, without mention of misadventure at the time of the procedure ==

== ENCOUNTER → 2020-03-26 | Outpatient (CLI) | payer OTHER | LOC: HYPER 10:23 | PROVIDERS: ATTEND Emergency Medicine Emergency Medical Services | DX: T87.89 Other complications of amputation stump (principal); E11.621 Type 2 diabetes mellitus with foot ulcer; L89.893 Pressure ulcer of other site, stage 3; L97.522 Non-pressure chronic ulcer of other part of left foot with fat layer exposed; M20.41 Other hammer toe(s) (acquired), right foot; F17.200 Nicotine dependence, unspecified, uncomplicated; F41.9 Anxiety disorder, unspecified; F32.9 Major depressive disorder, single episode, unspecified; Z79.84 Long term (current) use of oral hypoglycemic drugs; Y83.5 Amputation of limb(s) as the cause of abnormal reaction of the patient, or of later complication, without mention of misadventure at the time of the procedure ==